=== PATIENT | male | born 1965 | race Caucasian/White ===

== ENCOUNTER 2023-08-14 22:52 | Emergency (ER) | payer BC ==
--- OUTSIDE RECORDS SUMMARY | 2023-08-14 22:56 | XMS REPORT | Continuity of Care Document ---
:1965 Author Organization [facility] t Address [address] [place]. [address] [place] [address] Care Team Providers Name Role Phone Frieda Mora MD Primary Care Physician Mee Bush MA Attending Clinician Unavailable Provider, Unknown Attending Clinician Unavailable SHERLY SINGER Attending Clinician Unavailable CLAUDIA JUSTICE Attending Clinician Unavailable MATHIEU LLAONS Attending Clinician Unavailable SHERLY SINGER Admitting Clinician Unavailable CLAUDIA JUSTICE Admitting Clinician Unavailable Payers Payer Name Policy Type Policy Number Effective Date Expiration Date S ource Problems Condition Condition Condition Status Onset Resolution Last Treating Co mments Source Name Details Category Date Date Treatment Clinician Date Ventral Ventral Disease Active Overview: Meth mitch hernia hernia 3-[address] without without 00:00: g of this Hospi ta obstructio obstructio 00 note l n or n or might be gangrene gangrene different from the original. Added automatic ally from request for surgery [id number] Gastroesop Gastroesop Disease Active Overview : [facility] hageal hageal 2-[address] reflux reflux 00:00: g of this Hospita disease disease 00 note l without without might be esophagiti esophagiti different s s from the original. Added automatic ally from request for surgery [id number] Morbid Morbid Disease Active [facility] obesity obesity 1-12 with BMI with BMI 00:00: Hospit a of of 00 l 45.0-49.9, 45.0-49.9, adult adult Primary Primary Disease Active Methodi hypertensi hypertensi 1-12 on on 00:00: Hospita 00 l Obstructiv Obstructiv Disease Active M ethodi e sleep e sleep 10-21 apnea on apnea on 00:00: Hospit a CPAP CPAP 00 l LAP-BAND LAP-BAND Disease Active Metho di surgery surgery 10-21 status status 00:00: Hospita 00 l Primary Primary Disease Active Methodi osteoarthr osteoarthr 10-21 itis of itis of 00:00: Hospita right knee right knee 00 l Allergies, Adverse Reactions, Alerts This patient has no known allergies or adverse reactions. Family History Family Member Diagnosis Comments Start Date Stop Date Source Natural father [facility] Natural [facility] Kid[facility] Social History Social Habit Start Date Stop Date Quantity Comments Source Sexual orientation 2021-10-20 Heterosexual Meth [facility]ist 09:39:53 (finding) Hospital Alcohol intake 2022-04-05 2022-04-05 2.86 /d [facility]00 Hospital History of Social 2022-04-05 2022-04-[address] function 00:00:00 00:00:00 Hospital Tobacco use and 2020-05-21 2020-05-21 Smokeless tobacco [facility] exposure 00:00:00 00:00:00 non-user Hospital Sex Assigned At [birth year] M [facility] 00:[facility]:00 Hospital Smoking Status Start Date Stop Date Source Never smoked tobacco [facility] Medications Ordered Filled Start Stop Current Ordering Indication Dosage Frequency Signature Comments Components Source Medication Medication Date Date Medication? Clinician (SIG) Name Name metoprolol Yes 100mg QD Take 100 Me [facility] tartrate 6-[address] (LOPRESSOR) 16:03: mouth Hospi ta 100 mg 15 daily. l tablet atorvastati Yes 20mg QD Take 20 mg Methodi n (LIPITOR) 6-[address] 20 mg 16:03: in the Hospita tablet 15 morning. l Default OP ins . multivitami Yes 1{tbl} QD Take 1 Me [facility] n tablet 6-[address] 16:03: mouth Hospita 15 daily. l pantoprazol Yes [id number] 20mg QD Take 1 Methodi e 3-24 tablet (20 st (PROTONIX) 00:00: mg total) Ho spita 20 MG EC 00 by mouth l tablet daily. lisinopriL 2018-10 Yes 40mg Take 40 mg M ethodi (PRINIVIL) 0-[address] 20 mg 00:00: Hospita tablet 00 l Procedures This patient has no known procedures. Plan of Care Planned Activity Planned Date Details Comments Source Future Scheduled 2023-08-06 [facility]ening for [facility] Test 10:49:20 malignant neoplasm of colon (procedure) [code = 059033322] Future Scheduled 2023-08-06 [facility] for [facility] Test 10:49:20 malignant neoplasm of colon (procedure) [code = 982177984] Future Scheduled 2023-08-06 [facility] for [facility] Test 10:49:20 malignant neoplasm of colon (procedure) [code = 954424063] Future Scheduled 2023-08-06 Hepatitis C [facility] Test 10:49:20 screening (procedure) [code = 625108277] Future Scheduled 2023-08-06 [facility] for [facility] Test 10:49:20 malignant neoplasm of colon (procedure) [code = 868634402] Future Scheduled 2023-08-06 [facility] for [facility] Test 10:49:20 malignant neoplasm of colon (procedure) [code = 120518067] Future Scheduled 2023-08-06 SHINGLES VACCINES [facility] Test 10:49:20 (1 of 2) [code = SHINGLES VACCINES (1 of 2)] Future Scheduled 2023-08-06 COVID-19 VACCINE (2 [facility] Test 10:49:20 - season) [code = COVID-19 VACCINE (2 - season)] Future Scheduled 2023-08-06 INFLUENZA VACCINE [facility] Test 10:49:20 (#1) [code = INFLUENZA VACCINE (#1)] Encounters Start End Encounter Admission Attending Care Care Encounter Source Date/Time Date/Time Type Type Clinicians Facility Department ID 2022-12-10 2022-12-10 Telephone Rachelle [id number] [facility] 00:00:00 00:00:[address] 3.430.2.7 Hospit a .3.605499 l .8 2022-09-01 2022-09-01 Documentat Provider, [id number] [facility] 00:00:00 00:00:00 ion Unknown [id number] 3.430.2.7 Hospit a .3.587816 l .8 2022-04-05 2022-04-05 Outpatient LUCRECIA, [facility] [id number] 00:00:00 00:00:00 GARTH [address] 2022-02-22 2022-02-22 Outpatient LUCRECIA, [facility] [id number] 00:00:00 00:00:00 GARTH [address] 2022-01-11 2022-01-11 Outpatient LUCRECIA, [facility] [id number] 00:00:00 00:00:00 GARTH 083 Method i 2022-01-05 2022-01-06 Inpatient LUCRECIA, [facility] [id number] 00:00:00 00:00:00 GARTH [address] 2021-12-31 2021-12-31 Outpatient LUCRECIA, [facility] [id number] 00:00:00 00:00:00 GARTH [address] 2021-12-31 2021-12-31 Outpatient LUCRECIA, [facility] [id number] 00:00:00 00:00:00 GARTH [address] 2021-12-31 2021-12-31 Outpatient JUSTICE, [facility] [id number] 00:00:00 00:00:00 SVETANG [address] 2021-12-28 2021-12-28 Outpatient LUCRECIA, [facility] [id number] 00:00:00 00:00:00 GARTH [address] 2021-12-14 2021-12-14 Outpatient JUSTICE, [facility] [id number] 00:00:00 00:00:00 SVETANG [address] 2021-12-10 2021-12-10 Outpatient JUSTICE, [facility] [id number] 00:00:00 00:00:00 SVETANG [address] 2021-11-19 2021-11-19 Outpatient JUSTICE, [facility] [id number] 00:00:00 00:00:00 SVETANG [address] 2021-11-11 2021-11-11 Outpatient LUCRECIA [facility] [id number] 00:00:00 00:00:00 GARTH [address] 2021-11-09 2021-11-09 Outpatient LUCRECIA [facility] [id number] 00:00:00 00:00:00 GARTH [address] 2021-10-21 2021-10-21 Outpatient LUCRECIA [facility] [id number] 00:00:00 00:00:00 GARTH [address] 2020-05-21 2020-05-21 Emergency VIET, [facility] [id number] 00:00:00 00:00:00 MATHIEU [address] Results Test Description Test Time Test Comments Results Result Comments Source SARS-CoV-2 (COVID-19) RNA [Presence] in Respiratory sp ecimen by 2021-12-10 14:49:19 KEVIN with probe detection Test Item Value Reference Range Interpretation Comme nts SARS coronavirus RNA [Presence] in Isolate by KEVIN with probe Not de tected detection (test code = 50033-7) Whether patient is employed in a healthcare setting (test code = Un known 60243-0) Whether the patient has symptoms related to condition of interest U nknown (test code = 96074-6) Whether the patient was hospitalized for condition of interest Unkn own (test code = 66506-8) Whether the patient was admitted to intensive care unit (ICU) for U nknown condition of interest (test code = 81380-8) Whether patient resides in a congregate care setting (test code = U nknown 38127-7) status (test code = 03413-3) Unknown Date and time of symptom onset (test code = 64318-4) [facility] RNA [Presence] in Respiratory specimen by KEVIN with probe [id number] 14:49:19 Test Item Value Reference Range Interpretation Comments SARS-CoV-2 (COVID-19) RNA Not detected [Presence] in Respiratory specimen by KEVIN with probe detection (test code = 99681-3) Whether patient is employed in a Unknown healthcare setting (test code = 04011-7) Whether the patient has symptoms Unknown related to condition of interest (test code = 80700-1) Whether the patient was Unknown hospitalized for condition of interest (test code = 74201-1) Whether the patient was admitted Unknown to intensive care unit (ICU) for condition of interest (test code = 74784-1) Whether patient resides in a Unknown congregate care setting (test code = 83922-8) status (test code = Unknown 00367-5) Date and time of symptom onset Unknown (test code = 31650-6) [facility]
[2023-08-15 00:03] LABS: Protime INR 1.04
[2023-08-15 00:15] LABS: Absolute Lymphocytes (CBC) 1.7 K/uL (0.7-4.9); Hematocrit 38.7 % (39.6-49.0); Lymphocytes % 29.1 % (15.3-44.8); MCV 99.6 fL (80-100); MPV 6.3 fL (7.6-11.3); Platelets 253 thou/uL (152-406); RBC Red Blood Cell Count 3.89 M/uL (4.33-5.43)
[2023-08-15 00:30] LABS: Albumin 3.3 g/dL (3.4-5.0); Bilirubin Direct 0.4 mg/dL (0-0.2); Bilirubin Indirect, Calculated 0.7 mg/dL (0.2-0.8); Bilirubin Total 1.1 mg/dL (0.2-1.0); Magnesium 1.8 mg/dL (1.6-2.4); Potassium 2.9 mEq/L (3.5-5.1); Protein, Total 6.6 g/dL (6.4-8.2)
[2023-08-15] MEDS ORDERED: POTASSIUM 25 MEQ EFFERV TAB ONE (01:11)
[2023-08-15] MEDS ORDERED: KCL 20 MEQ/100 mL IVPB 100 ML IV ONE (01:11)
[2023-08-15] MEDS ORDERED: NA CHLORIDE 0.9% 1,000 ML ONE (01:11)
[2023-08-15 01:40] LABS: Barbiturates NEGATIVE (NEGATIVE); Benzodiazepines NEGATIVE (NEGATIVE); Cocaine NEGATIVE (NEGATIVE); METHAMPHETAM NEGATIVE (NEGATIVE); Methadone NEGATIVE (NEGATIVE); Opiates NEGATIVE (NEGATIVE); Phencyclidine NEGATIVE (NEGATIVE); THC Cannibis NEGATIVE (NEGATIVE)
--- NOTE | 2023-08-15 03:19 | EDPHYS ---
Physician Documentation [facility] Name: Irwin Sierra Age: 58 yrs Sex: Male : 1965 Arrival Date: 08/14/2023 Time: 22:52 Bed 17 Private MD: ED Physician Gregory Anaya HPI: 08/14 23:14 This 58 yrs old Male presents to ER via Ambulatory with complaints of Chest Pain, Arm cp Pain, Neck and Upper Back Pain. 23:14 The patient or guardian reports chest pain that is located primarily in the anterior cp chest wall, left. Onset: 1 month(s) ago, intermittent. 23:15 The pain radiates to the left arm, left jaw, left back. cp 23:15 Associated signs and symptoms: Pertinent negatives: abdominal pain, cough, lower cp extremity pain, lower extremity swelling, palpitations, syncope. 23:15 The chest pain is described as intermittent. cp 23:15 Severity of pain: in the emergency department the pain has resolved. cp Historical: - Allergies: 23:06 No Known Allergies; hb - Home Meds: 23:06 Metoprolol Tartrate Oral [Active]; amlodipine oral [Active]; hb - PMHx: 23:06 Hypertensive disorder; hb - PSHx: 23:06 Knee- Right; hernia Repair; Lap Band; Gastric Bypass; hb - Immunization history:: Adult Immunizations up to date. - Social history:: Smoking status: Patient denies any tobacco usage or history of. Patient uses alcohol, on a daily basis. ROS: 23:20 Constitutional: Negative for body aches, chills, fever, poor PO intake, cp 23:20 Eyes: Negative for injury, pain, redness, and discharge, cp 23:20 Cardiovascular: Positive for chest pain, Negative for edema, palpitations, 23:20 Respiratory: Negative for cough, shortness of breath, wheezing, 23:20 Abdomen/GI: Negative for abdominal pain, vomiting, diarrhea, constipation, 23:20 Back: Positive for radiated pain, 23:20 Neuro: Negative for altered mental status, dizziness, headache, numbness, syncope, weakness, 23:20 All other systems are negative, Exam: 23:15 ECG was reviewed by the Attending Physician. cp 23:25 Constitutional: The patient appears in no acute distress, alert, awake, cp non-diaphoretic, non-toxic, well developed, well nourished, 23:25 Head/Face: Normocephalic, atraumatic. cp 23:25 Eyes: Periorbital structures: appear normal, Conjunctiva: normal, no exudate, no injection, Sclera: no appreciated abnormality, Lids and lashes: appear normal, bilaterally, 23:25 ENT: External ear(s): are unremarkable, Nose: is normal, Mouth: Lips: moist, Oral mucosa: pink and intact, moist, Posterior pharynx: is normal, airway is patent, no erythema, no exudate, 23:25 Neck: ROM/movement: is normal, is supple, without pain, no range of motions limitations, 23:25 Chest/axilla: Inspection: normal, Palpation: is normal, no crepitus, no tenderness, 23:25 Cardiovascular: Rate: normal, Rhythm: regular, Edema: ankle edema, that is very mild, JVD: is not appreciated, 23:25 Respiratory: the patient does not display signs of respiratory distress, Respirations: normal, no use of accessory muscles, no retractions, labored breathing, is not present, Breath sounds: are clear throughout, no decreased breath sounds, no stridor, no wheezing, 23:25 Abdomen/GI: Inspection: abdomen appears normal, Palpation: abdomen is soft and non-tender, in all quadrants, 23:25 Back: pain, is absent, ROM is normal, 23:25 Neuro: Orientation: to person, place \T\ time. Mentation: is normal, Motor: moves all fours, strength is normal, Sensation: is normal, 08/15 02:33 ECG was reviewed by the Attending Physician. cp Vital Signs: 08/14 23:04 BP 151 / 94; Pulse 70; Resp 16; Temp 98.5; Pulse Ox 99% on R/A; Weight 99.79 kg; Height hb 5 ft. 10 in. ; Pain 10; 08/15 00:08 BP 131 / 79; Pulse 63; Resp 17 S; Pulse Ox 98% on R/A; lg3 01:14 BP 134 / 82; Pulse 66; Resp 17 S; Pulse Ox 98% on R/A; lg3 03:29 BP 131 / 80; Pulse 65; Resp 16 S; Pulse Ox 98% on R/A; lg3 1105 23:04 Body Mass Index 31.57 (99.79 kg, 177.8 cm) hb 08/14 23:04 Pain Scale: Adult hb MDM: 08/14 23:01 Patient medically screened. cp 08/15 00:00 Differential diagnosis: acute myocardial infarction, anxiety, chest wall pain, cp pericarditis, pleurisy, pneumonia, pneumothorax, pulmonary embolus, stable angina, thoracic aortic disection, unstable angina. 03:20 Data reviewed: vital signs, nurses notes, lab test result(s), EKG, radiologic studies, cp CT scan, plain films. 03:20 Consideration of Admission/Observation Escalation of care including cp admission/observation considered. Care significantly affected by the following chronic conditions: Hypertension. Counseling: I had a detailed discussion with the patient and/or guardian regarding the historical points, exam findings, and any diagnostic results supporting the discharge/admit diagnosis, lab results, radiology results, the need for outpatient follow up, a information resource consultant. ED course: VSS. Initial and repeat EKG and troponin negative. Patient reports he is dealing with recent passing of mother and has a information resource consultant to f/u with. Will return to ED worsening symptoms. 08/14 23:06 Order name: Basic Metabolic Panel; Complete Time: 00:52 cp 08/15 00:52 Interpretation: Normal except: NA 125; K 2.9; CL 87; BUN 6; CA 8.4. cp 08/14 23:06 Order name: CBC with Diff; Complete Time: 00:52 cp 08/15 00:52 Interpretation: Normal except: RBC 3.89; HCT 38.7; MCH 35.7; MPV 6.3. cp 08/14 23:06 Order name: LFT's; Complete Time: 00:52 cp 08/15 00:53 Interpretation: Normal except: BILIT 1.1; BILID 0.4; ALB 3.3; A/G 1.0. cp 08/14 23: Order name: Magnesium; Complete Time: 00:52 cp 08/14 23:06 Order name: NT PRO-BNP; Complete Time: 00:52 cp 08/15 00:53 Interpretation: Abnormal: NT PRO-BNP 185. cp 08/14 23:06 Order name: PT-INR; Complete Time: 00:52 cp 08/14 23:06 Order name: Troponin HS; Complete Time: 00:52 cp 08/15 00:54 Interpretation: Reviewed. cp 08/14 23:06 Order name: ETOH Level; Complete Time: 00:52 cp 08/15 00:53 Interpretation: Abnormal: ETOH 82. cp 08/14 23:06 Order name: UDS; Complete Time: 01:52 cp 08/15 01:52 Interpretation: Reviewed. 08/15 02:19 Order name: Troponin High Sensitivity; Complete Time: 03:15 cp 08/15 03:16 Interpretation: Reviewed. 08/14 23:06 Order name: XRAY Chest (1 view) cp 08/15 02:21 Order name: CT Chest Angio cp 08/14 23:06 Order name: EKG; Complete Time: 23:07 cp 08/14 23:06 Order name: Cardiac monitoring; Complete Time: 23:23 cp 08/14 23:06 Order name: EKG - Nurse/Tech; Complete Time: 23:08 cp 08/14 23:06 Order name: IV Saline Lock; Complete Time: 23:23 cp 08/14 23:06 Order name: Labs collected and sent; Complete Time: 23:23 cp 08/14 23:06 Order name: O2 Per Protocol; Complete Time: 23:08 cp 08/14 23:06 Order name: O2 Sat Monitoring; Complete Time: 23:08 cp 08/15 02:19 Order name: EKG - Nurse/Tech; Complete Time: 02:21 cp EC/05 23:15 Rate is 62 beats/min. Rhythm is regular. NC interval is normal. QRS interval is cp prolonged at 166 msec. QT interval is normal. T waves are Inverted in leads III, aVR. Interpreted by me. Reviewed by me. 08/15 02:33 Rate is 55 beats/min. Rhythm is regular. NC interval is normal. QRS interval is normal. cp QT interval is normal. T waves are Inverted in leads III, aVR. Interpreted by me. Reviewed by me. Administered Medications: 01:13 Drug: NS 0.9% IV 1000 ml IV at 500 ml/hr Per protocol; 1000 mL bolus Route: IV; Rate: lg3 500 ml/hr; Site: right antecubital; 03:21 Follow up: IV Status: Completed infusion; IV Intake: 1000ml lg3 01:13 Drug: Potassium Chloride IV 20 mEq IV at calculated rate once; administer over 1-2 lg3 hours Route: IV; Rate: calculated rate; Site: right antecubital; 03:20 Follow up: Response: No adverse reaction; IV Status: Completed infusion; IV Intake: lg3 100ml 01:13 Drug: Potassium PO Effervescent Tablet 50 mEq PO once; dissolve in 4 ounces of water or lg3 juice Route: PO; 02:20 Follow up: Response: No adverse reaction lg3 03:29 Drug: Aspirin PO Chewable Tablet 324 mg PO once; 81 mg tablets x 4 Route: PO; lg3 03:29 Follow up: Response: No adverse reaction lg3 Disposition: 03:06 Co-signature as Attending Physician, Gregory Anaya MD I agree with the assessment sp4 and plan of care. I reviewed the patient's care provided by the Advanced Practice Provider and agree with the diagnosis and treatment plan. Disposition Summary: 08/15/23 03:19 Discharge Ordered Notes: Location: Home cp Problem: new cp Symptoms: have improved cp Condition: Stable cp Diagnosis - Chest pain, unspecified cp - Hypokalemia cp Followup: cp - With: Private Physician - When: 2 - 3 days - Reason: Recheck today's complaints Discharge Instructions: - Discharge Summary Sheet cp - Nonspecific Chest Pain, Adult cp - Potassium Content of Foods cp - Aspirin and Your Heart cp - Hypokalemia cp Forms: - Medication Reconciliation Form cp - Thank You Letter cp - Antibiotic Education cp - Prescription Opioid Use cp - Patient Portal Instructions cp - Leadership Thank You Letter cp Signatures: Dispatcher [employer] EDWatson Eagle PA PA cp Tiffany Nixon RN RN Annita Salinas RN RN 3 Gregory Anaya MD MD sp4
--- NOTE | 2023-08-15 03:19 | ER ---
Nurse's Notes [facility] Name: Irwin Sierra Age: 58 yrs Sex: Male : 1965 Arrival Date: 08/14/2023 Time: 22:52 Bed 17 Private MD: Diagnosis: Chest pain, unspecified;Hypokalemia Presentation: 08/14 23:04 Chief complaint: Worsening intermittent midsternal chest pain that radiates to back and hb left arm x 1 week. Pt reports significant emotional stress and anxiety due to his mother's suicide last week. Coronavirus screen: At this time, the client does not indicate any symptoms associated with coronavirus-19. Ebola Screen: No symptoms or risks identified at this time. Initial Sepsis Screen: Does the patient meet any 2 criteria? No. Patient's initial sepsis screen is negative. Does the patient have a suspected source of infection? No. Patient's initial sepsis screen is negative. Risk Assessment: Do you want to hurt yourself or someone else? Patient reports no desire to harm self or others. Onset of symptoms was August 07, 2023. 23:04 Method Of Arrival: Ambulatory hb 23:04 Acuity: GERALDINE 3 hb Historical: - Allergies: 23:06 No Known Allergies; hb - Home Meds: 23:06 Metoprolol Tartrate Oral [Active]; amlodipine oral [Active]; hb - PMHx: 23:06 Hypertensive disorder; hb - PSHx: 23:06 Knee- Right; hernia Repair; Lap Band; Gastric Bypass; hb - Immunization history:: Adult Immunizations up to date. - Social history:: Smoking status: Patient denies any tobacco usage or history of. Patient uses alcohol, on a daily basis. Screenin:11 [facility] ED Fall Risk Assessment (Adult) History of falling in the last 3 months, lg3 including since admission No falls in past 3 months (0 pts). Abuse screen: Denies threats or abuse. Denies injuries from another. Nutritional screening: No deficits noted. Tuberculosis screening: No symptoms or risk factors identified. Assessment: 23:11 General: Appears in no apparent distress. comfortable, Behavior is cooperative, lg3 anxious. Pain: Complains of pain in chest Pain radiates to back and left arm Pain began months ago. Neuro: No deficits noted. Yadav Agitation-Sedation Scale (RASS): 0 - Alert and Calm Level of Consciousness is awake, alert, obeys commands, Oriented to person, place, time, situation. Cardiovascular: No deficits noted. Reports chest pain, Capillary refill < 3 seconds Clubbing of nail beds is absent JVD is absent Patient's skin is warm and dry. Respiratory: No deficits noted. Airway is patent Respiratory effort is even, unlabored, Respiratory pattern is regular, symmetrical. GI: No deficits noted. No signs and/or symptoms were reported involving the gastrointestinal system. Abdomen is round non-distended. : No deficits noted. No signs and/or symptoms were reported regarding the genitourinary system. EENT: No deficits noted. No signs and/or symptoms were reported regarding the EENT system. Derm: No deficits noted. No signs and/or symptoms reported regarding the dermatologic system. Skin is intact, is healthy with good turgor, Skin is dry, Skin is normal, Skin temperature is warm. Musculoskeletal: No deficits noted. No signs and/or symptoms reported regarding the musculoskeletal system. Circulation, motion, and sensation intact. Range of motion: intact in all extremities. 08/15 00:08 Reassessment: Patient appears in no apparent distress at this time. No changes from lg3 previously documented assessment. Patient and/or family updated on plan of care and expected duration. Pain level reassessed. Patient is alert, oriented x 3, equal unlabored respirations, skin warm/dry/pink. 01:14 Reassessment: Patient appears in no apparent distress at this time. No changes from lg3 previously documented assessment. Patient and/or family updated on plan of care and expected duration. Pain level reassessed. Patient is alert, oriented x 3, equal unlabored respirations, skin warm/dry/pink. Patient states feeling better. Patient states symptoms have improved. 02:21 Reassessment: Patient appears in no apparent distress at this time. No changes from lg3 previously documented assessment. Patient and/or family updated on plan of care and expected duration. Pain level reassessed. Patient is alert, oriented x 3, equal unlabored respirations, skin warm/dry/pink. Patient states feeling better. 03:30 Reassessment: Patient appears in no apparent distress at this time. No changes from lg3 previously documented assessment. Patient and/or family updated on plan of care and expected duration. Pain level reassessed. Patient is alert, oriented x 3, equal unlabored respirations, skin warm/dry/pink. Patient denies pain at this time. Patient states feeling better. Patient states symptoms have improved. Vital Signs: 08/14 23:04 BP 151 / 94; Pulse 70; Resp 16; Temp 98.5; Pulse Ox 99% on R/A; Weight 99.79 kg; Height hb 5 ft. 10 in. ; Pain 4/10; 08/15 00:08 BP 131 / 79; Pulse 63; Resp 17 S; Pulse Ox 98% on R/A; lg3 01:14 BP 134 / 82; Pulse 66; Resp 17 S; Pulse Ox 98% on R/A; lg3 03:29 BP 131 / 80; Pulse 65; Resp 16 S; Pulse Ox 98% on R/A; lg3 08/14 23:04 Body Mass Index 31.57 (99.79 kg, 177.8 cm) hb 08/14 23:04 Pain Scale: Adult hb ED Course: 08/14 22:55 Patient arrived in ED. [email or web address] 23:01 Watson Sheridan PA is PHCP. cp 23:01 Gregory Anaya MD is Attending Physician. cp 23:06 Triage completed. hb 23:08 Arm band placed on. hb 23:11 Patient has correct armband on for positive identification. Placed in gown. Bed in low lg3 position. Call light in reach. Side rails up X 1. Client placed on continuous cardiac and pulse oximetry monitoring. NIBP monitoring applied. satellite project site monitor on. Door closed. Noise minimized. Warm blanket given. 23:11 Patient maintains SpO2 saturation greater than 95% on room air. lg3 23:23 Inserted saline lock: 20 gauge in right antecubital area, using aseptic technique. lg3 Blood collected. 23:24 XRAY Chest (1 view) In Process Unspecified. EDMS 08/15 00:50 Annita Salinas, RN is Primary Nurse. lg3 01:13 UDS Sent. lg3 02:52 CT Chest Angio In Process Unspecified. EDMS 03:30 No provider procedures requiring assistance completed. IV discontinued, intact, lg3 bleeding controlled, No redness/swelling at site. Pressure dressing applied. Administered Medications: 01:13 Drug: NS 0.9% IV 1000 ml IV at 500 ml/hr Per protocol; 1000 mL bolus Route: IV; Rate: lg3 500 ml/hr; Site: right antecubital; 03:21 Follow up: IV Status: Completed infusion; IV Intake: 1000ml lg3 01:13 Drug: Potassium Chloride IV 20 mEq IV at calculated rate once; administer over 1-2 lg3 hours Route: IV; Rate: calculated rate; Site: right antecubital; 03:20 Follow up: Response: No adverse reaction; IV Status: Completed infusion; IV Intake: lg3 100ml 01:13 Drug: Potassium PO Effervescent Tablet 50 mEq PO once; dissolve in 4 ounces of water or lg3 juice Route: PO; 02:20 Follow up: Response: No adverse reaction lg3 03:29 Drug: Aspirin PO Chewable Tablet 324 mg PO once; 81 mg tablets x 4 Route: PO; lg3 03:29 Follow up: Response: No adverse reaction lg3 Medication: 03:30 VIS not applicable for this client. lg3 Intake: 03:20 IV: 100ml; Total: 100ml. lg3 03:21 IV: 1000ml; Total: 1100ml. lg3 Outcome: 03:19 Discharge ordered by . dagmar 03:30 Discharged to home ambulatory, lg3 03:30 Condition: stable 03:30 Discharge instructions given to patient, Instructed on discharge instructions, follow up and referral plans. Demonstrated understanding of instructions, follow-up care, 03:31 Patient left the ED. lg3 Signatures: Dispatcher [employer] EDMS Watson Sheridan PA PA cp Baxter, Heather, RN RN Annita Salinas RN RN lg3 Brandie Jimenez [email or web address]
[2023-08-15] MEDS ORDERED: ASPIRIN 81 MG CHEWABLE TABLET ONE (03:40)
[2023-08-15 03:46] VITALS: TEMP 98.5
[2023-08-15 03:52] VITALS: O2SAT 98
[2023-08-15 04:03] VITALS: BP 131/80
--- NOTE | 2023-08-15 12:05 | RAD REPORT ---
EXAM DESCRIPTION: XR Chest, 1 View CLINICAL HISTORY: The patient is 58 years old and is Male; CHEST PAIN TECHNIQUE: Frontal view of the chest. COMPARISON: No relevant prior studies available. FINDINGS: Lungs: See below. Pleural space: Left hemidiaphragm is somewhat obscured which can be seen with left pleural effusi on, as well as left lower lobe consolidation or atelectasis. No pneumothorax. Heart: Unremarkable. Mediastinum: Unremarkable. Bones/joints: No acute findings. IMPRESSION: Left hemidiaphragm is somewhat obscured which can be seen with left pleural effusion, as well as left lower lobe consolidation or atelectasis. Electronically signed by: Valente Alfaro MD 08/14/2023 11:45 PM CONTACT ACID PLANT OPERATOR HELPER Due to temporary technical issues with the PACS/Fluency reporting system, reports are being signed by the in house radiologist without review as a courtesy to ensure prompt reporting. The interpreting r adiologist is fully responsible for the content of the report.
--- NOTE | 2023-08-15 12:38 | RAD REPORT ---
EXAM DESCRIPTION: CT CHEST ANGIOGRAPHY WITH IV CONTRAST CLINICAL HISTORY: CHEST PAIN COMPARISON: None. TECHNIQUE: CT CHEST ANGIOGRAPHY WITH IV CONTRAST on 08/15/2023 2:21 AM SPEED OPERATOR. MIPS reconstructions were generated. This exam was performed according to our departmental dose-optimization program, which includes autom ated exposure control, adjustment of the mA and/or kV according to patient size and/or use of iterati ve reconstruction technique. MIP images were generated. FINDINGS: Thoracic aorta is normal in course and caliber without aneurysm or dissection. Pulmonary a rteries are adequately opacified without acute or chronic filling defects. The heart is normal in size. There is no pericardial effusion. Intrathoracic lymph nodes are not enla rged. There is no pleural effusion, pleural thickening or pneumothorax. Central airways are patent. Lungs a re clear with no consolidation, mass or interstitial lung disease. In the upper abdomen, there are postoperative changes of the upper stomach. There are no acute osse ous findings. No suspicious bony lesions. IMPRESSION: No acute findings. Electronically signed by: Abhinav Tadeo MD 08/15/2023 3:08 AM SPEED OPERATOR Due to temporary technical issues with the PACS/Fluency reporting system, reports are being signed by the in house radiologist without review as a courtesy to ensure prompt reporting. The interpreting r adiologist is fully responsible for the content of the report.
--- NOTE | 2023-08-20 14:34 | EKG ---
Test Date: 2023-08-14 Test Time: 23:03:34 Form Builder: FLORECITA MEASUREMENT RESULTS: Intervals: Rate: 63 TX: 176 QRSD: 160 QT: 480 QTc: 491 [place]: P: 64 TX: 176 QRS: 12 T: 31 INTERPRETIVE STATEMENTS: Normal sinus rhythm Right bundle branch block Abnormal ECG Compared to ECG 07/13/2010 10:11:41 Right bundle-branch block now present Electronically Signed On 08-20-23 14:18:22 AIR PURIFIER SERVICER by Kemal Tello
--- NOTE | 2023-08-20 14:34 | EKG ---
Test Date: 2023-08-14 Test Time: 23:08:52 It Auditor: FLORECITA MEASUREMENT RESULTS: Intervals: Rate: 62 ND: 190 QRSD: 166 QT: 484 QTc: 491 [place]: P: 56 ND: 190 QRS: 1 T: 21 INTERPRETIVE STATEMENTS: Normal sinus rhythm Right bundle branch block Abnormal ECG Compared to ECG 08/14/2023 23:05:15 No significant changes Electronically Signed On 08-20-23 14:18:18 DEVELOPMENT EXPERT by Kemal Tello
--- NOTE | 2023-08-20 14:34 | EKG ---
Test Date: 2023-08-15 Test Time: 02:26:44 Waterproofing Machine Operator: FLORECITA MEASUREMENT RESULTS: Intervals: Rate: 55 AK: 170 QRSD: 100 QT: 474 QTc: 453 [place]: P: 52 AK: 170 QRS: 14 T: 0 INTERPRETIVE STATEMENTS: Sinus bradycardia Otherwise normal ECG Compared to ECG 08/14/2023 23:08:52 Sinus rhythm no longer present Right bundle-branch block no longer present Electronically Signed On 08-20-23 14:18:09 ACCESSIONER by Kemal Tello
--- NOTE | 2023-08-20 14:34 | EKG ---
Test Date: 2023-08-14 Test Time: 23:05:15 Game Preserve Manager: FLORECITA MEASUREMENT RESULTS: Intervals: Rate: 62 IN: 162 QRSD: 158 QT: 478 QTc: 485 [place]: P: 41 IN: 162 QRS: 5 T: 24 INTERPRETIVE STATEMENTS: Normal sinus rhythm Right bundle branch block Abnormal ECG Compared to ECG 08/14/2023 23:03:34 No significant changes Electronically Signed On 08-20-23 14:18:19 IRISH MOSS BLEACHER by Kemal Tello
== END 2023-08-15 03:31 | disposition home or self-care (01) ==
LOC: ER 22:52
DX: R07.89 Other chest pain (principal); E87.6 Hypokalemia; I10 Essential (primary) hypertension; Z98.84 Bariatric surgery status
CPT/HCPCS: 96365; 93005 ×4; 85025; 80048; 36415; 83735; 85610; 80076; 84484 ×2; 83880; 80307; 71275; 71045; 99285; 96366; 82077; Q9967; J3480; J7030

== ENCOUNTER 2025-02-26 16:29 | Emergency (ER) | payer BC ==
[2025-02-26] MEDS ORDERED: LIDOCAINE 2% W/EPI 1:200,000 MPF 20 ML VIAL IM ONE (16:49)
--- NOTE | 2025-02-26 17:55 | ER ---
Nurse's Notes [facility] Name: Irwin Sierra Age: 59 yrs Sex: Male : 1965 Arrival Date: 02/26/2025 Time: 16:29 Bed 7 Private MD: Diagnosis: Alcohol intoxication, scalp laceration, closed head injury Presentation: 02/26 16:38 Chief complaint: EMS states: DROVE TO CAR REPAIR AFTER ETOH, FALL AT CAR REPAIR FACILITY AFTER BEING OFFERED RIDE HOME. Coronavirus screen: At this time, the client does not indicate any symptoms associated with coronavirus-19. Ebola Screen: No symptoms or risks identified at this time. Initial Sepsis Screen: Does the patient meet any 2 criteria? No. Patient's initial sepsis screen is negative. Does the patient have a suspected source of infection? No. Patient's initial sepsis screen is negative. Risk Assessment: Do you want to hurt yourself or someone else? Patient reports no desire to harm self or others. Onset of symptoms was February 26, 2025 at 16:00. Care prior to arrival: Cervical collar in place. IV initiated. 18 GA, in the left antecubital area. 16:38 Method Of Arrival: EMS: [facility] bp 16:38 Acuity: GERALDINE 3 bp Triage Assessment: 16:40 General: Appears in no apparent distress. uncomfortable, Behavior is cooperative, bp appropriate for age, anxious. Pain: Complains of pain in scalp. EENT: No deficits noted. Neuro: Level of Consciousness is awake, alert, obeys commands, Oriented to Appropriate for age. Cardiovascular: No deficits noted. Respiratory: No deficits noted. GI: No signs and/or symptoms were reported involving the gastrointestinal system. : No signs and/or symptoms were reported regarding the genitourinary system. Derm: No deficits noted. Musculoskeletal: No deficits noted. Injury Description: Laceration sustained to scalp. Historical: - Allergies: 16:40 No Known Allergies; bp - PMHx: 16:40 Hypertensive disorder; bp - PSHx: 16:40 Gastric Bypass; hernia repair; knee- right; lap band; bp - Immunization history:: Adult Immunizations up to date. - Infectious Disease History:: Denies. - Social history:: Smoking status: Patient denies any tobacco usage or history of. Screenin:41 [facility] ED Fall Risk Assessment (Adult) History of falling in the last 3 months, bp including since admission Yes- physiologic fall (2 pts) Confusion or Disorientation No (0 pts) Intoxicated or Sedated Yes (3 pts) Impaired Gait No (0 pts) Mobility Assist Device Used No (0 pt) Altered Elimination No (0 pt) Score/Fall Risk Level 3 or more points = High Risk Oriented to surroundings. Abuse screen: Denies threats or abuse. Denies injuries from another. Nutritional screening: No deficits noted. Tuberculosis screening: No symptoms or risk factors identified. Assessment: 16:41 General: SEE TRIAGE NOTE. bp 16:57 Reassessment: PT CLEARED OWN C-COLLAR IN SPITE OF STAFF DIRECTION. REMAINS NEURO INTACT.bp 17:38 Reassessment: Dr Sue at bedside for laceration repair. ph 18:01 Reassessment: DC ON HOLD FOR FAMILY TRANSPORT HOME. bp 18:17 Reassessment: Pt's daughter at bedside, d/c home w/ family. ph Vital Signs: 16:38 BP 136 / 88; Pulse 100; Resp 15; Temp 98; Pulse Ox 99% ; bp 16:42 Weight 106.59 kg; Height 5 ft. 10 in. ; ph 18:16 BP 138 / 89; Pulse 91; Resp 18; Temp 97.8; Pulse Ox 98% on R/A; ph 16:42 Body Mass Index 33.72 (106.59 kg, 177.8 cm) ph [place] Coma Score: 18:16 Eye Response: spontaneous(4). Motor Response: obeys commands(6). Verbal Response: ph confused(4). Total: 14. Trauma Score (Adult): 18:16 Eye Response: spontaneous(1); Verbal Response: confused(1); Motor Response: obeys ph commands(2); Systolic BP: > 89 mm Hg(4); Respiratory Rate: 10 to 29 per min(4); [place] Score: 14; Trauma Score: 12 ED Course: 16:33 Patient arrived in ED. bd 16:34 Mary Ann Sue MD is Attending Physician. sp3 16:38 Robi Leblanc, VIOLETTE is Primary Nurse. bp 16:39 Triage completed. bp 16:40 Arm band placed on. bp 16:41 Patient has correct armband on for positive identification. bp 16:41 Maintain EMS IV. Dressing intact. Good blood return noted. Site clean \T\ dry. Gauge \T\ bp site: 18 LAC. Flushed with 10 mL NS. 17:14 CT Head C Spine Sent. bp 17:30 CT Head C Spine In Process Unspecified. EDMS 18:00 Assist provider with laceration repair on scalp that was between 7.6 to 12.5 cm using bp jose. Set up tray. Performed by Mary Ann Sue MD Patient tolerated well. IV discontinued, intact, bleeding controlled, No redness/swelling at site. Pressure dressing applied. 18:01 Provided Education on: NA. bp Administered Medications: 16:56 Drug: Lidocaine-Epinephrine Infiltration -1%: (1:100,000) 10 ml 20 ml Infiltration bp once; to bedside Volume: 20 ml; Route: Infiltration; 18:18 Follow up: Response: No adverse reaction ph Medication: 16:41 VIS not applicable for this client. bp Outcome: 17:55 Discharge ordered by . sp3 18:00 Discharged to home ambulatory, with family, bp 18:00 Condition: stable 18:00 Discharge instructions given to patient, family, Instructed on discharge instructions, follow up and referral plans. wound care, Demonstrated understanding of instructions, follow-up care, wound care, 18:18 Patient left the ED. ph Signatures: Dispatcher [employer] EDNM Radha Barbour Patricia, RN RN Robi Almodovar, RN RN Mary Ann Price MD MD sp3
--- NOTE | 2025-02-26 17:55 | EDPHYS ---
Physician Documentation [facility] Name: Irwin Sierra Age: 59 yrs Sex: Male : 1965 Arrival Date: 02/26/2025 Time: 16:29 Bed 7 Private MD: ED Physician Mary Ann Sue HPI: 02/26 17:08 This 59 yrs old Male presents to ER via EMS with complaints of Fall Injury, ETOH Abuse. sp3 17:08 59-year-old male with history of hypertension and alcohol abuse presents via EMS for sp3 mechanical fall injury due to walking while being intoxicated after he took his car to local [employer]. [employer] offered him a ride home but he fell while getting into the secondary vehicle. Patient tripped and fell and hit the back of his head. Patient has laceration to the back as reported by EMS. No other injuries reported. Patient has no complaints whatsoever and denies any headache or neck pain.. Historical: - Allergies: 16:40 No Known Allergies; bp - PMHx: 16:40 Hypertensive disorder; bp - PSHx: 16:40 Gastric Bypass; hernia repair; knee- right; lap band; bp - Immunization history:: Adult Immunizations up to date. - Infectious Disease History:: Denies. - Social history:: Smoking status: Patient denies any tobacco usage or history of. ROS: 17:08 Constitutional: Negative for fever, chills, and weight loss, ENT: Negative for injury, sp3 pain, and discharge, Cardiovascular: Negative for chest pain, palpitations, and edema, Respiratory: Negative for shortness of breath, cough, wheezing, and pleuritic chest pain, Abdomen/GI: Negative for abdominal pain, nausea, vomiting, diarrhea, and constipation, Back: Negative for injury and pain, MS/Extremity: Negative for injury and deformity, Psych: Negative for depression, anxiety, suicide ideation, homicidal ideation, and hallucinations, Allergy/Immunology: Negative for hives, rash, and allergies, Endocrine: Negative for neck swelling, polydipsia, polyuria, polyphagia, and marked weight changes, Hematologic/Lymphatic: Negative for swollen nodes, abnormal bleeding, and unusual bruising, 17:08 All other systems are negative, Exam: 17:09 Constitutional: This is a well developed, well nourished patient who is awake, alert, sp3 and in no acute distress. Eyes: Pupils equal round and reactive to light, extra-ocular motions intact. Lids and lashes normal. Conjunctiva and sclera are non-icteric and not injected. Cornea within normal limits. Periorbital areas with no swelling, redness, or edema. ENT: Nares patent. No nasal discharge, no septal abnormalities noted. External auditory canals are clear. Oropharynx with no redness, swelling, or masses, exudates, or evidence of obstruction, uvula midline. Mucous membranes moist. Chest/axilla: Normal chest wall appearance and motion. Nontender with no deformity. No lesions are appreciated. Cardiovascular: Regular rate and rhythm with a normal S1 and S2. No gallops, murmurs, or rubs. Normal PMI, no JVD. No pulse deficits. Respiratory: Lungs have equal breath sounds bilaterally, clear to auscultation and percussion. No rales, rhonchi or wheezes noted. No increased work of breathing, no retractions or nasal flaring. Abdomen/GI: Soft, non-tender, with normal bowel sounds. No distension or tympany. No guarding or rebound. No evidence of tenderness throughout. Back: No spinal tenderness. No costovertebral tenderness. Full range of motion. Skin: Warm, dry with normal turgor. Normal color with no rashes, no lesions, and no evidence of cellulitis. MS/ Extremity: Pulses equal, no cyanosis. Neurovascular intact. Full, normal range of motion. Neuro: Awake and alert, GCS 15, oriented to person, place, time, and situation. Cranial nerves II-XII grossly intact. Motor strength 5/5 in all extremities. Sensory grossly intact. Cerebellar exam normal. Normal gait. Psych: Awake, alert, with orientation to person, place and time. Behavior, mood, and affect are within normal limits. 17:09 Head/face: Posterior occiput stellate laceration of 3 cm total. Bleeding controlled. No other head injury noted.. 17:09 Neck: No midline tenderness noted. Patient still in c-collar., Vital Signs: 16:38 BP 136 / 88; Pulse 100; Resp 15; Temp 98; Pulse Ox 99% ; bp 16:42 Weight 106.59 kg; Height 5 ft. 10 in. ; ph 18:16 BP 138 / 89; Pulse 91; Resp 18; Temp 97.8; Pulse Ox 98% on R/A; ph 16:42 Body Mass Index 33.72 (106.59 kg, 177.8 cm) ph Trudi Coma Score: 18:16 Eye Response: spontaneous(4). Motor Response: obeys commands(6). Verbal Response: ph confused(4). Total: 14. Trauma Score (Adult): 18:16 Eye Response: spontaneous(1); Verbal Response: confused(1); Motor Response: obeys ph commands(2); Systolic BP: > 89 mm Hg(4); Respiratory Rate: 10 to 29 per min(4); Trudi Score: 14; Trauma Score: 12 Laceration: 17:54 Wound Repair of 5cm ( 2.0in ) subcutaneous laceration to scalp. Distal sp3 neuro/vascular/tendon intact. Anesthesia: Wound infiltrated with 10 mls of 1% lidocaine w/ Epi. Wound prep: Extensive cleansing, Copious irrigation. Skin closed with 9 9 galina Galnia using simple sutures and sterile technique. Dressed with Myles. Patient tolerated well. MDM: 16:43 Medical Screening Exam initiated sp3 17:11 Data reviewed: vital signs, nurses notes, EMS record, radiologic studies. ED course: sp3 59-year-old male with a head injury and scalp laceration after mechanical fall while being intoxicated. Will obtain CT scan of the head and C-spine. Patient took his own c-collar off. Will repair head injury with galina and if CT is negative discharged home.. 17:53 ED course: 9 galina placed after lidocaine infiltration. CT scan demonstrates no sp3 abnormality. We will safely discharge home at this time.. 02/26 16:46 Order name: CT Head C Spine; Complete Time: 17:57 sp3 02/26 16:46 Order name: [facility]. Order: Stapler to bedside; Complete Time: 16:56 sp3 02/26 16:46 Order name: Wound Care; Complete Time: 17:14 sp3 Administered Medications: 16:56 Drug: Lidocaine-Epinephrine Infiltration -1%: (1:100,000) 10 ml 20 ml Infiltration bp once; to bedside Volume: 20 ml; Route: Infiltration; 18:18 Follow up: Response: No adverse reaction ph Disposition Summary: 02/26/25 17:55 Discharge Ordered Notes: Your galina need to be removed in 7 days. Location: Home sp3 Condition: Stable sp3 Diagnosis - Alcohol intoxication, scalp laceration, closed head injury sp3 Followup: sp3 - With: Private Physician - When: Upon discharge from the Emergency Department - Reason: Continuance of care Discharge Instructions: - Discharge Summary Sheet sp3 - Alcohol Intoxication sp3 - Head Injury, Adult sp3 - Sutures, [place], or Adhesive Wound Closure sp3 Forms: - Medication Reconciliation Form sp3 - Antibiotic Education sp3 - Prescription Opioid Use sp3 - Patient Portal Instructions sp3 - Leadership Thank You Letter sp3 Signatures: Dispatcher [employer] EDRobi Belle RN RN bp Mary Ann Sue MD MD sp3 Avani Rodriguez RN ph
--- NOTE | 2025-02-26 17:57 | RAD REPORT ---
EXAM: CT brain without contrast HISTORY: fall head injury COMPARISON: None TECHNIQUE: Multiple contiguous axial images were obtained and a CT of the brain without contrast. Sag ittal and coronal reformats were performed. FINDINGS: No evidence of hydrocephalus, intracranial hemorrhage, or extra-axial fluid collection. The brain is normal in morphology. The calvarium is intact. Incidentally noted 1.3 cm right orbital retroconal ovoid lesion with focus o f calcification. The visualized paranasal sinuses and mastoid air cells are essentially clear. IMPRESSION: No evidence of acute intracranial abnormality. 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 EXAM: CT of the cervical spine without contrast HISTORY: fall head injury COMPARISON: None TECHNIQUE: Multiple contiguous axial images were obtained in a CT of the cervical spine without contr ast. Sagittal and coronal reformats were performed. FINDINGS: The vertebral bodies demonstrate normal height and alignment. No evidence of acute fracture or subluxation.. Mild multilevel degenerative changes contributing to mild degrees of neural foraminal narrowing most notably at C5-6 and C6-7. No prevertebral soft tissue swelling is seen. The posterior facets are well aligned. Normal alignment of the skull base with the cervical spine is seen. The lung apices are unremarkable. IMPRESSION: No evidence of acute osseous abnormality of the cervical spine. Degenerative changes as above.
[2025-02-26 18:51] VITALS: BP 138/89; TEMP 97.8; O2SAT 98
== END 2025-02-26 18:18 | disposition home or self-care (01) ==
LOC: ER 16:29
DX: S01.01XA Laceration without foreign body of scalp, initial encounter (principal); F10.129 Alcohol abuse with intoxication, unspecified; W01.0XXA Fall on same level from slipping, tripping and stumbling without subsequent striking against object, initial encounter
CPT/HCPCS: 70450; 72125